=== PATIENT | male | born 1950 | race Caucasian/White ===

== ENCOUNTER 2017-12-14 21:00 | Emergency (ER) | payer OTHER ==
[~2017-12-14] VITALS: Ht 170.2 cm; Wt 86.2 kg
[2017-12-14 22:27] LABS: Basophils # (auto) 0.1 uL; Basophils % (auto) 0.6 % (0.0-2.0); Eosinophils # (auto) 0.2 uL; Eosinophils % (auto) 1.6 % (0.0-7.0); Hematocrit 48.5 % (41.0-53.0); Hemoglobin 16.6 g/dL (13.5-17.5); Lymphocytes # (auto) 1.4 uL; Lymphocytes % (auto) 14.9 % (10.0-50.0); Mean Corpuscular Hemoglobin 32.5 pg (28.0-32.0); Mean Corpuscular Hgb Conc. 34.2 g/dL (32.0-36.0); Mean Corpuscular Volume 94.9 fL (80.0-100.0); Monocytes # (auto) 0.7 uL; Monocytes % (auto) 7.8 % (0.0-12.0); Neutrophils # (auto) 7.1 uL; Neutrophils % (auto) 75.1 % (37.0-80.0); Platelet Count (auto) 225 10^3/uL (140-450); Red Blood Cells 5.11 10^6/uL (4.5-5.90); Red Cell Distribution Width 13.9 % (11.8-14.3); White Blood Cell 9.5 10^3/uL (4.4-10.8)
[2017-12-14 22:43] LABS: INR 0.99 (0.9-1.15); Partial Thromboplastin Time 26.4 sec (22.64-33.71); Prothrombin Time 10.8 sec (9.37-12.3)
[2017-12-14 22:48] LABS: Alanine Aminotransferase 45 U/L (16-61); Albumin 4.3 g/dL (3.4-5.0); Alkaline Phosphatase 89 U/L (45-117); Anion Gap 7 (5-15); Aspartate Aminotransferase 28 U/L (15-37); BUN/Creatinine Ratio 15.5; Bilirubin, Total 0.9 mg/dL (0.2-1.0); Blood Urea Nitrogen 15 mg/dL (7-18); Calcium 9.1 mg/dL (8.5-10.1); Carbon Dioxide 29 mmol/L (21-32); Chloride 104 mmol/L (98-107); GFR African American 99 mL/min; GFR Non-African American 82 mL/min; Glucose 101 mg/dL (74-106); Potassium 4.2 mmol/L (3.5-5.1); Sodium 140 mmol/L (136-145); Total Protein 8.1 g/dL (6.4-8.2)
[2017-12-15 00:37] VITALS: BP 157/92
== END 2017-12-15 02:07 | disposition home or self-care (01) ==
LOC: ER 21:00
DX: I10 Essential (primary) hypertension (principal); J32.9 Chronic sinusitis, unspecified; E78.5 Hyperlipidemia, unspecified; R06.02 Shortness of breath
CPT/HCPCS: 36415; 70450; 71045; 80053; 83880; 84484; 85025; 85610; 85730; 93005

== ENCOUNTER 2021-01-30 10:52 | Inpatient (IN) | payer OTHER ==
[~2021-01-30] VITALS: Ht 170.2 cm; Wt 97.2 kg
[2021-01-30 11:40] LABS: Basophils # (auto) 0.1 10 ^3/uL (0-0.2); Basophils % (auto) 0.7 % (0.0-2.0); Eosinophils # (auto) 0.2 10 ^3/uL (0-0.8); Eosinophils % (auto) 2.1 % (0.0-7.0); Hematocrit 47.6 % (41.0-53.0); Hemoglobin 16.6 g/dL (13.5-17.5); Lymphocytes # (auto) 1.8 10 ^3/uL (0.4-5.4); Lymphocytes % (auto) 23.1 % (10.0-50.0); Mean Corpuscular Hemoglobin 32.8 pg (28.0-32.0); Mean Corpuscular Hgb Conc. 34.9 g/dL (32.0-36.0); Mean Corpuscular Volume 93.9 fL (80.0-100.0); Monocytes # (auto) 0.6 10 ^3/uL (0-1.3); Monocytes % (auto) 7.4 % (0.0-12.0); Neutrophils # (auto) 5.1 10 ^3/uL (1.6-8.6); Neutrophils % (auto) 66.7 % (37.0-80.0); Nucleated Red Blood Cells % 0.2 %; Platelet Count (auto) 194 10^3/uL (140-450); Red Blood Cells 5.07 10^6/uL (4.5-5.90); Red Cell Distribution Width 13.5 % (11.8-14.3); White Blood Cell 7.7 10^3/uL (4.4-10.8)
[2021-01-30 11:51] LABS: INR 1.01 (0.9-1.15); Partial Thromboplastin Time 27.2 sec (23.0-31.2)
[2021-01-30 12:22] LABS: Anion Gap 5 (5-15); Calcium 9.4 mg/dL (8.5-10.1); Carbon Dioxide 27 mmol/L (21-32); Chloride 108 mmol/L (98-107); Glucose 142 mg/dL (74-106); Potassium 4.1 mmol/L (3.5-5.1); Sodium 140 mmol/L (136-145)
[2021-01-30 12:31] LABS: Alanine Aminotransferase 32 U/L (16-61); Alkaline Phosphatase 103 U/L (45-117); Aspartate Aminotransferase 20 U/L (15-37); BUN/Creatinine Ratio 18.3; Bilirubin, Total 0.7 mg/dL (0.2-1.0); Blood Urea Nitrogen 15 mg/dL (7-18); GFR African American 119 mL/min; GFR Non-African American 98 mL/min; Magnesium 2.2 mg/dL (1.6-2.6); Total Protein 7.9 g/dL (6.4-8.2)
[2021-01-30] MEDS ORDERED: hydrALAZINE HCL 20 MG/ML VL IV PRN (13:45)
[2021-01-30] MEDS ORDERED: MORPHINE SULF INJ 2 MG/ML SYRINGE 1ML IV PRN ×2 (13:45)
[2021-01-30] MEDS ORDERED: HYDROcodone-ACET 5/325MG TAB PO PRN (13:45)
[2021-01-30] MEDS ORDERED: ONDANSETRON HCL 4 MG/2 ML VIAL IV PRN (13:45)
[2021-01-30] MEDS ORDERED: NITROGLYCERIN 0.4 MG SL TAB SL PRN (13:45)
[2021-01-30] MEDS ORDERED: ACETAMINOPHEN 500 MG TAB PO PRN (13:45)
[2021-01-30 14:19] LABS: CRP High Sensitivity 0.14 mg/dL (< 0.3)
[2021-01-30 17:38] LABS: Urine WBC None Seen /hpf (0 - 3)
[2021-01-30 17:41] VITALS: BP 146/71
[2021-01-30 18:11] LABS: Urine Bacteria NONE SEEN /hpf (None Seen); Urine Blood Negative /uL (Negative); Urine Mucus FEW (None Seen); Urine Specific Gravity 1.015 (1.001-1.035)
[2021-01-30 21:00] VITALS: BP 113/70
[2021-01-30] MEDS: ATORVASTATIN 20 MG TAB PO SCH (21:30)
[2021-01-30] MEDS: DOCUSATE SOD 100 MG CAP PO SCH (21:30)
[2021-01-30] MEDS: METOPROLOL TARTRATE 25 MG TAB PO SCH (21:31)
[2021-01-31 05:00] VITALS: BP 121/70
[2021-01-31 08:47] VITALS: BP 116/66
[2021-01-31] MEDS ORDERED: ADENOSINE 84 MG in GIVE UN-DILUTED 0 ML IV STA (08:50)
[2021-01-31] MEDS: FAMOTIDINE 20 MG TAB PO SCH (09:52)
[2021-01-31] MEDS: ASPirin-EC 81 mg tab PO SCH (09:52)
[2021-01-31] MEDS: METOPROLOL TARTRATE 25 MG TAB PO SCH ×2 (09:53→21:36)
[2021-01-31] MEDS: DOCUSATE SOD 100 MG CAP PO SCH ×2 (09:53→21:36)
[2021-01-31] MEDS: LISINOPRIL 10 MG TAB PO SCH (09:53)
[2021-01-31 16:51] VITALS: BP 123/73
[2021-01-31] MEDS: ATORVASTATIN 20 MG TAB PO SCH (21:36)
[2021-01-31] MEDS ORDERED: TEMAZEPAM 15 MG CAP PO ONE (22:00)
[2021-01-31 22:19] VITALS: BP 127/71
[2021-02-01 05:09] VITALS: BP 130/65
[2021-02-01 09:00] VITALS: BP 123/85
[2021-02-01] MEDS: DOCUSATE SOD 100 MG CAP PO SCH ×2 (09:16→21:38)
[2021-02-01] MEDS: METOPROLOL TARTRATE 25 MG TAB PO SCH ×2 (09:17→21:40)
[2021-02-01] MEDS: FAMOTIDINE 20 MG TAB PO SCH (09:18)
[2021-02-01] MEDS: ASPirin-EC 81 mg tab PO SCH (09:18)
[2021-02-01] MEDS: LISINOPRIL 10 MG TAB PO SCH (09:18)
[2021-02-01 13:00] VITALS: BP 107/63
[2021-02-01 17:00] VITALS: BP 122/67
[2021-02-01] MEDS: ATORVASTATIN 20 MG TAB PO SCH (21:38)
[2021-02-01 22:00] VITALS: BP 106/65
[2021-02-02 05:00] VITALS: BP 112/64
[2021-02-02 09:00] VITALS: BP_SYST 111; BP_SYST 116; BP_DIAS 68; BP_DIAS 71
[2021-02-02] MEDS: METOPROLOL TARTRATE 25 MG TAB PO SCH ×2 (10:00→22:00)
[2021-02-02] MEDS: ASPirin-EC 81 mg tab PO SCH (10:11)
[2021-02-02] MEDS: LISINOPRIL 10 MG TAB PO SCH (10:11)
[2021-02-02] MEDS: DOCUSATE SOD 100 MG CAP PO SCH ×2 (10:11→23:58)
[2021-02-02] MEDS: FAMOTIDINE 20 MG TAB PO SCH (10:12)
[2021-02-02 13:00] VITALS: BP 116/71
[2021-02-02 16:46] VITALS: BP 106/71
[2021-02-02 22:00] VITALS: BP 115/71
[2021-02-02] MEDS: ATORVASTATIN 20 MG TAB PO SCH (23:58)
[2021-02-03] MEDS ORDERED: TEMAZEPAM 15 MG CAP PO ONE (00:45)
[2021-02-03 05:00] VITALS: BP 103/71
[2021-02-03 08:43] VITALS: BP 111/83
[2021-02-03] MEDS: ASPirin-EC 81 mg tab PO SCH (09:52)
[2021-02-03] MEDS: DOCUSATE SOD 100 MG CAP PO SCH ×2 (09:52→21:25)
[2021-02-03] MEDS: FAMOTIDINE 20 MG TAB PO SCH (09:53)
[2021-02-03] MEDS: LISINOPRIL 10 MG TAB PO SCH (09:53)
[2021-02-03] MEDS: METOPROLOL TARTRATE 25 MG TAB PO SCH ×2 (09:55→21:25)
[2021-02-03 13:00] VITALS: BP 120/63
[2021-02-03 16:50] VITALS: BP 101/60
[2021-02-03] MEDS: ATORVASTATIN 20 MG TAB PO SCH (21:25)
[2021-02-03 22:00] VITALS: BP 102/62
[2021-02-04 05:00] VITALS: BP 129/75
[2021-02-04] MEDS ORDERED: LIDOCAINE 2%HCL (LOCAL ANESTH.) INJ 20ML MDV ONE (09:41)
[2021-02-04] MEDS ORDERED: IODIXANOL 320MG/ML 100ML BTL IV ONE (09:41)
[2021-02-04] MEDS ORDERED: SODIUM CHL 0.9% 0 ML ONE (09:51)
[2021-02-04] MEDS ORDERED: VERAPAMIL 2.5MG/ML INJ 2ML VIAL IV ONE (09:51)
[2021-02-04] MEDS ORDERED: ANGIOMAX 250 MG VIAL IV ONE (09:51)
[2021-02-04] MEDS ORDERED: fentaNYL CITRATE 100 MCG/2 ML VL ONE (09:51)
[2021-02-04] MEDS ORDERED: MIDAZOLAM HCL 1MG/1ML-2 ML VIAL ONE (09:51)
[2021-02-04] MEDS ORDERED: HEPARIN SODIUM (PORCINE) 5000 UNITS/ML 1ML VIAL ONE (09:56)
[2021-02-04] MEDS: METOPROLOL TARTRATE 25 MG TAB PO SCH (10:00)
[2021-02-04] MEDS: ASPirin-EC 81 mg tab PO SCH (12:27)
[2021-02-04] MEDS: DOCUSATE SOD 100 MG CAP PO SCH ×2 (12:27→21:02)
[2021-02-04] MEDS: FAMOTIDINE 20 MG TAB PO SCH (12:28)
[2021-02-04] MEDS: LISINOPRIL 10 MG TAB PO SCH (12:28)
[2021-02-04 13:00] VITALS: BP 137/70
[2021-02-04 17:00] VITALS: BP 117/74
[2021-02-04] MEDS: ATORVASTATIN 20 MG TAB PO SCH (21:02)
[2021-02-04 22:00] VITALS: BP 122/75
[2021-02-05 05:00] VITALS: BP 113/66
[2021-02-05 08:46] VITALS: BP 117/70
[2021-02-05] MEDS: DOCUSATE SOD 100 MG CAP PO SCH (09:25)
[2021-02-05] MEDS: ASPirin-EC 81 mg tab PO SCH (09:25)
[2021-02-05] MEDS: LISINOPRIL 10 MG TAB PO SCH (09:27)
[2021-02-05] MEDS: FAMOTIDINE 20 MG TAB PO SCH (09:28)
[2021-02-05 13:00] VITALS: BP 116/70
[2021-02-05] MEDS ORDERED: ATOR10TA52 PO (13:36)
[2021-02-05] MEDS ORDERED: ASPI-543 PO (13:36)
[2021-02-05] MEDS ORDERED: LISI-648 PO (13:36)
[2021-02-05 17:00] VITALS: BP 109/62
== END 2021-02-05 17:55 | disposition home or self-care (01) | DRG 287 ==
LOC: ER 10:52 → TELE 10:53 → TELE-CENTR 17:28
PROVIDERS: ADMIT Nurse Practitioner Acute Care; ATTEND Internal Medicine
PROC: 4A023N7 Measurement of Cardiac Sampling and Pressure, Left Heart, Percutaneous Approach (ICD-10-PCS; principal; 2021-02-04)
PROC: B2111ZZ Fluoroscopy of Multiple Coronary Arteries using Low Osmolar Contrast (ICD-10-PCS; 2021-02-04)
PROC: B2151ZZ Fluoroscopy of Left Heart using Low Osmolar Contrast (ICD-10-PCS; 2021-02-04)
DX: R07.89 Other chest pain (principal); I10 Essential (primary) hypertension; E78.5 Hyperlipidemia, unspecified; E66.9 Obesity, unspecified; E11.9 Type 2 diabetes mellitus without complications; Z82.49 Family history of ischemic heart disease and other diseases of the circulatory system; Z95.5 Presence of coronary angioplasty implant and graft; Z68.34 Body mass index [BMI] 34.0-34.9, adult; Z20.822 Contact with and (suspected) exposure to COVID-19; E78.00 Pure hypercholesterolemia, unspecified
CPT/HCPCS: 36415; 70450; 71045; 78452; 80053; 80061; 81001; 83036; 83735; 84484; 85025; 85379; 85610; 85730; 86141; 87426; 93005; 93017; 93306; 93886; 99152; G0378; J0153; J2250; Q9967

== ENCOUNTER 2022-11-26 04:19 | Emergency (ER) | payer OTHER ==
[~2022-11-26] VITALS: Ht 170.2 cm; Wt 90.9 kg
[~2022-11-26 04:19] MED LIST: ASPI-543 PO; ATOR10TA52 PO; LISI-716 PO
[2022-11-26 05:06] LABS: Basophils # (auto) 0 10 ^3/uL (0-0.2); Basophils % (auto) 0.6 % (0.0-2.0); Eosinophils # (auto) 0.4 10 ^3/uL (0-0.8); Eosinophils % (auto) 4.7 % (0.0-7.0); Hematocrit 45.8 % (41.0-53.0); Hemoglobin 15.6 g/dL (13.5-17.5); Lymphocytes # (auto) 1.4 10 ^3/uL (0.4-5.4); Lymphocytes % (auto) 19.2 % (10.0-50.0); Mean Corpuscular Hemoglobin 31.8 pg (28.0-32.0); Mean Corpuscular Volume 93.6 fL (80.0-100.0); Monocytes # (auto) 0.6 10 ^3/uL (0-1.3); Monocytes % (auto) 8.4 % (0.0-12.0); Neutrophils % (auto) 67.1 % (37.0-80.0); Nucleated Red Blood Cells % 0.1 %; Red Blood Cells 4.89 10^6/uL (4.5-5.90); Red Cell Distribution Width 13.2 % (11.8-14.3); White Blood Cell 7.4 10^3/uL (4.4-10.8)
[2022-11-26 05:14] LABS: Albumin 3.5 g/dL (3.4-5.0); BUN/Creatinine Ratio 15.7; Calcium 8.7 mg/dL (8.5-10.1); Magnesium 2.2 mg/dL (1.6-2.6)
[2022-11-26 05:16] LABS: Bilirubin, Total 0.5 mg/dL (0.2-1.0); Total Protein 6.7 g/dL (6.4-8.2)
[2022-11-26] MEDS ORDERED: PRED20TA2 PO (07:18)
[2022-11-26] MEDS ORDERED: LEVO-28 PO (07:18)
[2022-11-26 09:27] VITALS: BP 140/74
[2022-11-26] MEDS ORDERED: methylPREDNISolone SOD SUCC 125 MG/2 ML VL IM ONE (10:15)
[2022-11-26] MEDS ORDERED: cefTRIAXone SOD 1,000 MG VL IM ONE (10:15)
[2022-11-26] MEDS ORDERED: methylPREDNISolone SOD SUCC 125 MG/2 ML VL ONE (10:22)
[2022-11-26] MEDS ORDERED: LIDOCAINE 2%HCL (LOCAL ANESTH.) INJ 10ml MDV ONE (10:22)
[2022-11-26] MEDS ORDERED: cefTRIAXone SOD 1,000 MG VL ONE (10:23)
== END 2022-11-26 09:29 | disposition home or self-care (01) ==
LOC: ER 04:19
DX: J20.9 Acute bronchitis, unspecified (principal); R73.9 Hyperglycemia, unspecified; E78.5 Hyperlipidemia, unspecified; I10 Essential (primary) hypertension
CPT/HCPCS: 36415; 71045; 80053; 83735; 83880; 84484; 85025; 93005; 96372; 99284; J0696; J2001; J2930

== ENCOUNTER → 2023-10-19 | Outpatient (CLI) | payer OTHER ==
[~2023-10-19] MED LIST changes: +LEVO500T91 PO; -LISI-716 PO; +LISI10TA34 PO; +PRED20TA2 PO
[2023-10-19 09:45] LABS: Basophils # (auto) 0.1 10 ^3/uL (0-0.2); Basophils % (auto) 0.8 % (0.0-2.0); Eosinophils # (auto) 0.2 10 ^3/uL (0-0.8); Eosinophils % (auto) 3.1 % (0.0-7.0); Hematocrit 48.4 % (41.0-53.0); Hemoglobin 16.5 g/dL (13.5-17.5); Lymphocytes # (auto) 1.7 10 ^3/uL (0.4-5.4); Lymphocytes % (auto) 22.9 % (10.0-50.0); Mean Corpuscular Hemoglobin 32.2 pg (28.0-32.0); Mean Corpuscular Volume 94.6 fL (80.0-100.0); Monocytes # (auto) 0.5 10 ^3/uL (0-1.3); Monocytes % (auto) 6.7 % (0.0-12.0); Neutrophils # (auto) 5.1 10 ^3/uL (1.6-8.6); Neutrophils % (auto) 66.5 % (37.0-80.0); Nucleated Red Blood Cells % 0.2 %; Red Blood Cells 5.12 10^6/uL (4.5-5.90); Red Cell Distribution Width 13.3 % (11.8-14.3); White Blood Cell 7.6 10^3/uL (4.4-10.8)
[2023-10-19 09:50] LABS: Urine Bacteria NONE SEEN /hpf (None Seen); Urine Blood Negative /uL (Negative); Urine Clarity Clear (Clear); Urine Color Yellow (Yellow); Urine Mucus FEW (None Seen); Urine Protein, UAD Negative (Negative); Urine Specific Gravity 1.036 (1.001-1.035); Urine Urobilinogen Normal (Negative); Urine WBC 1 /hpf (0 - 3)
[2023-10-19 11:18] LABS: Alanine Aminotransferase 21 U/L (7-40); Albumin 4.6 g/dL (3.2-4.8); Alkaline Phosphatase 96 U/L (46-116); Anion Gap 7 (5-15); Blood Urea Nitrogen 13 mg/dL (9-23); Calcium 9.6 mg/dL (8.5-10.1); Carbon Dioxide 30 mmol/L (20-30); Chloride 104 mmol/L (98-107); Glucose 296 mg/dL (74-106); LDL Cholesterol 120 mg/dL (< 100); Potassium 4.5 mmol/L (3.5-5.1); Sodium 141 mmol/L (136-145); Triglycerides 168 mg/dL (< 150)
[2023-10-19 11:19] LABS: Aspartate Aminotransferase 15 U/L (13-40); Bilirubin, Total 0.8 mg/dL (0.2-1.0); Cholesterol 185 mg/dL (< 200); HDL Cholesterol 35 mg/dL (40-59); Total Protein 7.1 g/dL (5.7-8.2)
== END | disposition home or self-care (01) ==
LOC: LAB 09:19
PROVIDERS: ATTEND Nurse Practitioner
DX: E78.5 Hyperlipidemia, unspecified (principal); R73.9 Hyperglycemia, unspecified; E03.9 Hypothyroidism, unspecified
CPT/HCPCS: 36415; 80053; 80061; 81001; 83036; 84443; 85025

== ENCOUNTER → 2023-12-17 | Outpatient (CLI) | payer OTHER ==
[2023-12-17 09:47] LABS: Basophils # (auto) 0.1 10 ^3/uL (0-0.2); Basophils % (auto) 0.7 % (0.0-2.0); Eosinophils # (auto) 0.7 10 ^3/uL (0-0.8); Eosinophils % (auto) 7.1 % (0.0-7.0); Hematocrit 45.5 % (41.0-53.0); Hemoglobin 15.5 g/dL (13.5-17.5); Lymphocytes # (auto) 1.8 10 ^3/uL (0.4-5.4); Lymphocytes % (auto) 19.8 % (10.0-50.0); Mean Corpuscular Hgb Conc. 34.1 g/dL (32.0-36.0); Mean Corpuscular Volume 93.9 fL (80.0-100.0); Monocytes # (auto) 0.6 10 ^3/uL (0-1.3); Monocytes % (auto) 6.3 % (0.0-12.0); Neutrophils # (auto) 6.1 10 ^3/uL (1.6-8.6); Neutrophils % (auto) 66.1 % (37.0-80.0); Nucleated Red Blood Cells % 0.1 %; Red Blood Cells 4.84 10^6/uL (4.5-5.90); White Blood Cell 9.2 10^3/uL (4.4-10.8)
[2023-12-17 10:09] LABS: Alanine Aminotransferase 16 U/L (7-40); Alkaline Phosphatase 97 U/L (46-116); Anion Gap 5 (5-15); Calcium 9.8 mg/dL (8.5-10.1); Carbon Dioxide 28 mmol/L (20-30); Chloride 107 mmol/L (98-107); Glucose 162 mg/dL (74-106); Potassium 4.4 mmol/L (3.5-5.1); Sodium 140 mmol/L (136-145)
[2023-12-17 10:10] LABS: Aspartate Aminotransferase 16 U/L (13-40); BUN/Creatinine Ratio 12.1 (10.0-20.0); Blood Urea Nitrogen 12 mg/dL (9-23); LDL Cholesterol 54 mg/dL (< 100); Triglycerides 100 mg/dL (< 150)
[2023-12-17 10:11] LABS: Albumin 4.6 g/dL (3.2-4.8); Cholesterol 103 mg/dL (< 200); HDL Cholesterol 29 mg/dL (40-59)
[2023-12-17 10:12] LABS: Bilirubin, Total 0.7 mg/dL (0.2-1.0)
[2023-12-17 12:51] LABS: Urine Epithelial Cast None Seen /hpf (<5)
[2023-12-17 12:58] LABS: Urine Bacteria NONE SEEN /hpf (None Seen); Urine Blood Negative /uL (Negative); Urine Clarity Clear (Clear); Urine Color Yellow (Yellow); Urine Hyaline Cast FEW /lpf (0 - 2); Urine Mucus FEW (None Seen); Urine Protein, UAD Negative (Negative); Urine Specific Gravity 1.022 (1.001-1.035); Urine Urobilinogen Normal (Negative); Urine WBC 3 /hpf (0 - 3)
== END | disposition home or self-care (01) ==
LOC: LAB 09:24
PROVIDERS: ATTEND Nurse Practitioner
DX: Z12.5 Encounter for screening for malignant neoplasm of prostate (principal); E11.9 Type 2 diabetes mellitus without complications; I10 Essential (primary) hypertension; E78.5 Hyperlipidemia, unspecified; E03.9 Hypothyroidism, unspecified
CPT/HCPCS: 36415; 80053; 80061; 81001; 82043; 83036; 84153; 84443; 85025

== ENCOUNTER → 2024-06-16 | Outpatient (CLI) | payer OTHER ==
[2024-06-16 12:02] LABS: Alanine Aminotransferase 18 U/L (7-40); Albumin 4.2 g/dL (3.2-4.8); Alkaline Phosphatase 104 U/L (46-116); Anion Gap 6 (5-15); Aspartate Aminotransferase 9 U/L (13-40); BUN/Creatinine Ratio 13.8 (10.0-20.0); Blood Urea Nitrogen 12 mg/dL (9-23); Calcium 9.7 mg/dL (8.7-10.4); Carbon Dioxide 27 mmol/L (20-30); Chloride 109 mmol/L (98-107); Glucose 155 mg/dL (74-106); Potassium 4.1 mmol/L (3.5-5.1); Sodium 142 mmol/L (136-145); Triglycerides 131 mg/dL (< 150)
[2024-06-16 12:03] LABS: LDL Cholesterol 76 mg/dL (< 100)
[2024-06-16 12:04] LABS: Bilirubin, Total 0.9 mg/dL (0.2-1.0); Cholesterol 130 mg/dL (< 200); HDL Cholesterol 38 mg/dL (40-59); Total Protein 6.5 g/dL (5.7-8.2)
== END | disposition home or self-care (01) ==
LOC: LAB 10:51
PROVIDERS: ATTEND Nurse Practitioner
DX: E11.9 Type 2 diabetes mellitus without complications (principal)
CPT/HCPCS: 36415; 80053; 80061; 83036

== ENCOUNTER 2025-05-05 15:30 | Outpatient (CLI) | payer OTHER ==
[2025-05-05 15:34] LABS: Urine Bacteria None Seen /hpf (None Seen)
[2025-05-05 15:54] LABS: Basophils # (auto) 0.1 10 ^3/uL (0-0.2); Basophils % (auto) 0.8 % (0.0-2.0); Eosinophils # (auto) 0.2 10 ^3/uL (0-0.8); Eosinophils % (auto) 3.4 % (0.0-7.0); Hematocrit 43.5 % (41.0-53.0); Hemoglobin 15.4 g/dL (13.5-17.5); Lymphocytes # (auto) 1.8 10 ^3/uL (0.4-5.4); Lymphocytes % (auto) 25.2 % (10.0-50.0); Mean Corpuscular Hemoglobin 32.8 pg (28.0-32.0); Mean Corpuscular Hgb Conc. 35.4 g/dL (32.0-36.0); Mean Corpuscular Volume 92.5 fL (80.0-100.0); Monocytes # (auto) 0.5 10 ^3/uL (0-1.3); Monocytes % (auto) 7.7 % (0.0-12.0); Neutrophils # (auto) 4.4 10 ^3/uL (1.6-8.6); Neutrophils % (auto) 62.9 % (37.0-80.0); Nucleated Red Blood Cells % 0.1 %; Platelet Count (auto) 169 10^3/uL (140-450); Red Cell Distribution Width 13.5 % (11.8-14.3)
[2025-05-05 16:01] LABS: Urine Blood Negative /uL (Negative); Urine Clarity Clear (Clear); Urine Color Dark-Yellow (Yellow); Urine Mucus FEW (None Seen); Urine Protein, UAD Negative (Negative); Urine Specific Gravity 1.029 (1.001-1.035); Urine Squamous Epithelial Cell None Seen /hpf (<5); Urine Urobilinogen Normal (Negative); Urine WBC 1 /HPF (0-3); Urine pH 5.5 (5.0-9.0)
[2025-05-05 16:06] LABS: Alanine Aminotransferase 18 U/L (7-40); Albumin 4.4 g/dL (3.2-4.8); Alkaline Phosphatase 98 U/L (46-116); Anion Gap 9 (5-15); Aspartate Aminotransferase 17 U/L (<34); BUN/Creatinine Ratio 19.1 (10.0-20.0); Blood Urea Nitrogen 18 mg/dL (9-23); Calcium 10.1 mg/dL (8.7-10.4); Carbon Dioxide 26 mmol/L (20-31); LDL Cholesterol 63 mg/dL (< 100); Potassium 3.9 mmol/L (3.5-5.1); Total Protein 6.6 g/dL (5.7-8.2)
[2025-05-05 16:07] LABS: Bilirubin, Total 0.7 mg/dL (0.2-1.0); Cholesterol 119 mg/dL (< 200)
[2025-05-05 16:15] LABS: Chloride 110 mmol/L (98-107); Glucose 166 mg/dL (74-106); HDL Cholesterol 32 mg/dL (40-59); Sodium 145 mmol/L (136-145); Triglycerides 234 mg/dL (< 150)
== END 2025-05-05 17:00 | disposition home or self-care (01) ==
LOC: LAB 15:30
PROVIDERS: ATTEND Nurse Practitioner
DX: I10 Essential (primary) hypertension (principal); E11.9 Type 2 diabetes mellitus without complications; E78.5 Hyperlipidemia, unspecified; Z79.899 Other long term (current) drug therapy
CPT/HCPCS: 36415; 80053; 80061; 81001; 83036; 84153; 84443; 85025

== ENCOUNTER → 2025-07-21 | Outpatient (CLI) | payer OTHER ==
[2025-07-21 13:41] LABS: Urine Protein, UAD Negative (Negative)
== END | disposition home or self-care (01) ==
LOC: LAB 12:06
PROVIDERS: ATTEND Nurse Practitioner
DX: N39.0 Urinary tract infection, site not specified (principal)
CPT/HCPCS: 81001; 87086